=== PATIENT | female | born 1985 | race Caucasian/White ===

== ENCOUNTER 2018-07-06 07:31 | Day surgery (SDC) | payer OTHER ==
[2018-07-02 16:08] VITALS: BMI 26.5
[2018-07-06] MEDS ORDERED: MIDAZOLAM HCL 2 MG/2 ML SINGLE DOSE VIAL ONE (09:38)
[2018-07-06] MEDS ORDERED: PROPOFOL 20 ML ONE ×4 (09:38)
[2018-07-06] MEDS ORDERED: BUPIVACAINE HCL/EPINEPHRINE/PF 30 ML VIAL IJ ONE (10:26)
--- NOTE | 2018-07-06 12:18 | OP ---
Operative Note - Note: Operative Date: 07/06/18 Pre-Operative Diagnosis: Painful Hardware Left Leg - 2 screws Operation: DEEPTHI - 2 screws (intact) Post-Operative Diagnosis: Same as Pre-op Surgeon: Jasmeet Arreaga Anesthesia: General
--- NOTE | 2018-07-06 12:18 | DS ---
Physical Examination Vital Signs: Vital Signs Temperature 98.1 F 07/06/18 08:15 Pulse Rate 87 07/06/18 08:15 Respiratory Rate 18 07/06/18 08:15 Blood Pressure 132/89 07/06/18 08:15 O2 Sat by Pulse Oximetry (%) 99 07/06/18 08:15 Discharge Summary Reason For Visit: REMOVAL HARDWARE LEFT KNEE Condition: Good - Instructions Diet, Activity, Other Instructions: Please leave bandage on for 2 days. You can shower in 48 hours. The incision can get wet. Place band aid over incision for one week. You may walk as tolerated. NO sports or running activities for 4 weeks. Disposition: HOME - Home Medications Comprehensive Discharge Medication List: Ambulatory Orders Hydroxychloroquine Sulfate [Plaquenil] 200 mg PO BID 07/02/18 Prednisone 10 mg PO DAILY 07/02/18
[2018-07-06 12:55] VITALS: TEMP 98.3
[2018-07-06 12:57] VITALS: BP 129/71; PULSE 96
--- NOTE | 2018-07-10 12:54 | PATH ---
Surgical Pathology Report Patient Name: QUIQUE STEVENS [facility]. Rec. #: [id number] /Age/Gender: 1985 (Age: 33) / F Account: [id number] Location: [facility] AMBULATORY Taken: 07/06/2018 Received: 07/06/2018 Reported: 07/10/2018 Physicians: Jasmeet Arreaga M.D. Specimen(s) Received HARDWARE LEFT KNEE Clinical History Painful hardware left knee Final Diagnosis ORTHOPEDIC HARDWARE, LEFT KNEE, REMOVAL: METALLIC SCREW CONSISTENT WITH ORTHOPEDIC HARDWARE (GROSS ONLY). Electronically Signed Jonathan Peterson M.D. Gross Description Received fresh labeled "hardware left knee," is a 5 cm in length meier metallic screw. No soft tissue is present. No sections are submitted, gross only. /07/09/2018 saudi/07/09/2018
== END 2018-07-06 13:00 | disposition home or self-care (01) ==
LOC: FASU 07:31
PROVIDERS: ATTEND Orthopaedic Surgery
PROC: 0QPH04Z Removal of Internal Fixation Device from Left Tibia, Open Approach (ICD-10-PCS; principal; 2018-07-06 11:17)
DX: T84.84XA Pain due to internal orthopedic prosthetic devices, implants and grafts, initial encounter (principal); Y79.1 Therapeutic (nonsurgical) and rehabilitative orthopedic devices associated with adverse incidents; Y92.9 Unspecified place or not applicable
CPT/HCPCS: 73560-TC-RT-FY; 84703; 88300-TC